=== PATIENT | male | born 1980 | race Caucasian/White ===

== ENCOUNTER 2017-01-22 00:03 | Emergency (ER) | payer SELFPAY ==
--- NOTE | 2017-01-22 00:28 | ED CLINICAL REPORT ---
Clinical Report - Physicians/Mid Levels [facility] [address] [place] [address] 01/22/2017 0:06 Patient: MARION FLOR Time Seen: 00:13. Arrived- By private vehicle. Historian- patient. HISTORY OF PRESENT ILLNESS Chief Complaint: SORE THROAT. This started about 4 days ago and is still present (persistent). It was gradual in onset. Pain described as mild. The patient has had a sore throat and mouth sores. No nasal discharge or congestion or toothache. Similar symptoms previously: None. Recent medical care: Not recently seen/assessed. REVIEW OF SYSTEMS No fever, cough, difficulty breathing or enlarged lymph nodes. All systems otherwise negative, except as recorded above. PAST HISTORY Negative. Problems: no known problems. Surgeries: No history of previous surgery. Additional Surgeries: no known surgeries. Medications: None. Allergies: No Known Drug Allergy. SOCIAL HISTORY Never smoker. No alcohol use or drug use. ADDITIONAL NOTES The nursing notes have been reviewed. PHYSICAL EXAM Vital Signs: 01/22/2017 00:10 BP: 128/70. HR: 80. RR: 16. O2 saturation: 99%. Temp: 98.8 F. Pain level now: 8/10. Have been reviewed as normal. Appearance: Alert. No acute distress. ENT: Nose normal. Tongue: moderate erythema (patchy white rash). No trismus present. No dental decay. Neck: No adenopathy. CVS: Normal heart rate and rhythm. Heart sounds normal. Respiratory: No respiratory distress. Breath sounds normal. Neuro: Oriented X 3. PROGRESS AND PROCEDURES Disposition: Discharged home in good condition. Condition: good. CLINICAL IMPRESSION Thrush INSTRUCTIONS Prescription Medications: Nystatin Suspension 100,000 units/mL: take one (1) teaspoon orally (swish thoroughly around mouth and swallow) every 6 hours for 7 days. No refills. (Disp 150 mL) Follow-up: Follow up with your doctor in about three days. Call for an appointment. Screening today revealed the patient's blood pressure to be in the pre-hypertensive range. The patient should follow up with a primary care provider for blood pressure management. (Electronically signed by Kit Trevino Dr. 01/22/2017 1:50)
--- NOTE | 2017-01-22 00:28 | ED ORDER SUMMARY ---
..... Patient: MARION FLOR OrderSheet [facility] VisitID: [id number] [address] [place] [address] 36y, M Registration Date/Time: 01/22/2017 ORDER SHEET Weight: 114.3 kg (stated) Allergies: No Known Drug Allergy GENERAL ORDERS: Culture, Strep Screen Urgent (00:17 01/22/2017 Arielle R.N. per protocol) (Ack 0:20 Luisekjoseluis) (0:33 JQuivey R.N.) MEDICATION ORDERS: IV FLUIDS: ORDER SHEET NOTES: [Electronically signed by Cory Ford R.N. (01:08 01/22/2017)] [Electronically signed by Kit Trevino Dr. (01:50 01/22/2017)] [Electronically locked/signed by Cory Ford R.N. (01:08 01/22/2017)]
--- NOTE | 2017-01-22 00:28 | ED NURSING NOTES ---
Clinical Report - Nurses [facility] [address] [place] [address] 01/22/2017 0:06 Patient: MARION FLOR TRIAGE Triage time 00:11. Acuity: LEVEL 4. Chief Complaint: SORE THROAT. 00:13. Alert. SEPSIS SCREEN: Sepsis Screen. Negative (no infection suspected/documented). --00:13 Cory Ford R.N. 00:10 01/22/17. BP: 128/70. HR: 80. RR: 16. O2 saturation: 99%. Temp: 98.8 F (oral). Pain level now: 05/19. --00:13 Cory Ford R.N. Weight: 114.3 kg stated. Height/Length: 68 inches Per Patient. BMI: 38.3. --00:13 Cory Ford R.N. Medications None. --00:12 Cory Ford R.N. Medication/allergy information source: the patient. --00:13 Cory Ford R.N. Allergies No Known Drug Allergy. --00:12 Cory Ford R.N. History Arrived by private vehicle. Historian: patient. Accompanied by friend. Primary physician (Mykel). Onset. (7 days ago). 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 PAST MEDICAL HX: Immunizations: up-to-date. SOCIAL HX: Never smoker. Occasional alcohol use. No drug use. No infectious disease exposure. ABUSE ASSESSMENT: No report of abuse. FALL RISK ASSESSMENT: Fall risk assessment completed. No fall risk identified. NUTRITIONAL RISK ASSESSMENT: The nutritional risk assessment revealed no deficiencies. FUNCTIONAL ASSESSMENT: Functional assessment: no impairments noted. LEARNING NEEDS ASSESSMENT: The learning needs assessment revealed no barriers. SKIN INTEGRITY ASSESSMENT: Skin integrity risk assessment completed. No skin integrity risk identified. --00:13 Cory Ford R.N. PROBLEMS: no known problems. ADDITIONAL SURGERIES: no known surgeries. Interventions ID band on patient. To treatment room. --00:13 Cory Ford R.N. PHYSICAL ASSESSMENT 00:14. Ambulatory to room. GENERAL / NEURO / PSYCH: Alert. Oriented X 4. HEENT: Voice within normal limits. Mucous membranes are pink. RESPIRATORY: Respirations not labored. SKIN: Skin is warm and dry. Normal skin turgor. --00:14 Cory Ford R.N. NURSING PROGRESS NOTES 00:14. Head of bed elevated. Two patient identifiers checked. Call light placed in reach. Bed placed in lowest position. Brakes of bed on. Patient ready for evaluation- chart flagged. --00:14 Cory Ford R.N. 00:17. Patient ID band checked for patient name and birthdate: patient confirmed. Throat swab obtained for rapid strep; labeled in the presence of the patient and sent to lab. --00:18 Cory Ford R.N. 00:32. The patient is calm and resting quietly. GENERAL / NEURO / PSYCH: Alert. Oriented X 4. RESPIRATORY: No respiratory distress. SKIN: Skin is warm and dry. --00:35 Cory Ford R.N. DISPOSITION / DISCHARGE Departure time: 00:34. Condition at departure: stable. No learning barriers present. Discharge instructions provided and reviewed with the patient. Reviewed medication(s) side effects, precautions, dosing and course information. Prescription(s) given to the patient. Patient verbalized understanding. Written instructions provided in Grenadian. The patient was discharged home and accompanied by translator interpreter. He left the Emergency Department ambulatory and via private vehicle. Telephone Station Installer driving. FALL RISK ASSESSMENT: Fall risk assessment completed. No fall risk identified. --00:35 Cory Ford R.N. Locked/Released at 01/22/2017 1:08 by Cory Ford R.N.
--- NOTE | 2017-01-22 00:28 | ED ORDER SUMMARY ---
..... Patient: MARION FLOR OrderSheet [facility] VisitID: [id number] [address] [place] [address] 36y, M Registration Date/Time: 01/22/2017 ORDER SHEET Weight: 114.3 kg (stated) Allergies: No Known Drug Allergy GENERAL ORDERS: Culture, Strep Screen Urgent (00:17 01/22/2017 Arielle R.N. per protocol) (Ack 0:20 Luisekjoseluis) (0:33 JQuivey R.N.) MEDICATION ORDERS: IV FLUIDS: ORDER SHEET NOTES: [Electronically signed by Cory Ford R.N. (01:08 01/22/2017)] [Electronically signed by Kit Trevino Dr. (01:50 01/22/2017)] [Electronically locked/signed by Cory Ford R.N. (01:08 01/22/2017)]
--- NOTE | 2017-01-22 00:28 | ED CLINICAL REPORT ---
Clinical Report - Physicians/Mid Levels [facility] [address] [place] [place] [address] 01/22/2017 0:06 Patient: MARION FLOR Time Seen: 00:13. Arrived- By private vehicle. Historian- patient. HISTORY OF PRESENT ILLNESS Chief Complaint: SORE THROAT. This started about 4 days ago and is still present (persistent). It was gradual in onset. Pain described as mild. The patient has had a sore throat and mouth sores. No nasal discharge or congestion or toothache. Similar symptoms previously: None. Recent medical care: Not recently seen/assessed. REVIEW OF SYSTEMS No fever, cough, difficulty breathing or enlarged lymph nodes. All systems otherwise negative, except as recorded above. PAST HISTORY Negative. Problems: no known problems. Surgeries: No history of previous surgery. Additional Surgeries: no known surgeries. Medications: None. Allergies: No Known Drug Allergy. SOCIAL HISTORY Never smoker. No alcohol use or drug use. ADDITIONAL NOTES The nursing notes have been reviewed. PHYSICAL EXAM Vital Signs: 01/22/2017 00:10 BP: 128/70. HR: 80. RR: 16. O2 saturation: 99%. Temp: 98.8 F. Pain level now: 8/10. Have been reviewed as normal. Appearance: Alert. No acute distress. ENT: Nose normal. Tongue: moderate erythema (patchy white rash). No trismus present. No dental decay. Neck: No adenopathy. CVS: Normal heart rate and rhythm. Heart sounds normal. Respiratory: No respiratory distress. Breath sounds normal. Neuro: Oriented X 3. PROGRESS AND PROCEDURES Disposition: Discharged home in good condition. Condition: good. CLINICAL IMPRESSION Thrush INSTRUCTIONS Prescription Medications: Nystatin Suspension 100,000 units/mL: take one (1) teaspoon orally (swish thoroughly around mouth and swallow) every 6 hours for 7 days. No refills. (Disp 150 mL) Follow-up: Follow up with your doctor in about three days. Call for an appointment. Screening today revealed the patient's blood pressure to be in the pre-hypertensive range. The patient should follow up with a primary care provider for blood pressure management. (Electronically signed by Kit Trevino Dr. 01/22/2017 1:50)
--- NOTE | 2017-01-22 00:28 | ED NURSING NOTES ---
Clinical Report - Nurses [facility] [address] [place] [address] 01/22/2017 0:06 Patient: MARION FLOR TRIAGE Triage time 00:11. Acuity: LEVEL 4. Chief Complaint: SORE THROAT. 00:13. Alert. SEPSIS SCREEN: Sepsis Screen. Negative (no infection suspected/documented). --00:13 Cory Ford R.N. 00:10 01/22/17. BP: 128/70. HR: 80. RR: 16. O2 saturation: 99%. Temp: 98.8 F (oral). Pain level now: 05/19. --00:13 Cory Ford R.N. Weight: 114.3 kg stated. Height/Length: 68 inches Per Patient. BMI: 38.3. --00:13 Cory Ford R.N. Medications None. --00:12 Cory Ford R.N. Medication/allergy information source: the patient. --00:13 Cory Ford R.N. Allergies No Known Drug Allergy. --00:12 Cory Ford R.N. History Arrived by private vehicle. Historian: patient. Accompanied by friend. Primary physician (Mykel). Onset. (7 days ago). 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 PAST MEDICAL HX: Immunizations: up-to-date. SOCIAL HX: Never smoker. Occasional alcohol use. No drug use. No infectious disease exposure. ABUSE ASSESSMENT: No report of abuse. FALL RISK ASSESSMENT: Fall risk assessment completed. No fall risk identified. NUTRITIONAL RISK ASSESSMENT: The nutritional risk assessment revealed no deficiencies. FUNCTIONAL ASSESSMENT: Functional assessment: no impairments noted. LEARNING NEEDS ASSESSMENT: The learning needs assessment revealed no barriers. SKIN INTEGRITY ASSESSMENT: Skin integrity risk assessment completed. No skin integrity risk identified. --00:13 Cory Ford R.N. PROBLEMS: no known problems. ADDITIONAL SURGERIES: no known surgeries. Interventions ID band on patient. To treatment room. --00:13 Cory Ford R.N. PHYSICAL ASSESSMENT 00:14. Ambulatory to room. GENERAL / NEURO / PSYCH: Alert. Oriented X 4. HEENT: Voice within normal limits. Mucous membranes are pink. RESPIRATORY: Respirations not labored. SKIN: Skin is warm and dry. Normal skin turgor. --00:14 Cory Ford R.N. NURSING PROGRESS NOTES 00:14. Head of bed elevated. Two patient identifiers checked. Call light placed in reach. Bed placed in lowest position. Brakes of bed on. Patient ready for evaluation- chart flagged. --00:14 Cory Ford R.N. 00:17. Patient ID band checked for patient name and birthdate: patient confirmed. Throat swab obtained for rapid strep; labeled in the presence of the patient and sent to lab. --00:18 Cory Ford R.N. 00:32. The patient is calm and resting quietly. GENERAL / NEURO / PSYCH: Alert. Oriented X 4. RESPIRATORY: No respiratory distress. SKIN: Skin is warm and dry. --00:35 Cory Ford R.N. DISPOSITION / DISCHARGE Departure time: 00:34. Condition at departure: stable. No learning barriers present. Discharge instructions provided and reviewed with the patient. Reviewed medication(s) side effects, precautions, dosing and course information. Prescription(s) given to the patient. Patient verbalized understanding. Written instructions provided in Jamaican. The patient was discharged home and accompanied by insurance salesman. He left the Emergency Department ambulatory and via private vehicle. Numerical Control Machine Machinist driving. FALL RISK ASSESSMENT: Fall risk assessment completed. No fall risk identified. --00:35 Cory Ford R.N. Locked/Released at 01/22/2017 1:08 by Cory Ford R.N.
--- NOTE | 2017-01-22 01:50 | ED MED RECONCILIATION SUMMARY ---
Patient: MARION FLOR Medication Reconciliation Report [facility] VisitID: [id number] [address] [place] [address] 36y, M Registration Date/Time: 01/22/2017 Weight: 114.3 kg Height/Length: 68 in. BMI: 38.3 ALLERGIES: No Known Drug Allergy The patient's Home Medications are listed below: NONE. The source(s) of the original Home Medication information: patient The following Medications were given to the patient in the Emergency Department: None. The following Medications were prescribed to the patient: Nystatin Suspension 100,000 units/mL: take one (1) teaspoon orally (swish thoroughly around mouth and swallow) every 6 hours for 7 days. No refills.(Disp 150 mL) -- Kit Trevino Dr.
--- NOTE | 2017-01-22 01:50 | ED MED RECONCILIATION SUMMARY ---
Patient: MARION FLOR Medication Reconciliation Report [facility] VisitID: [id number] [address] [place] [address] 36y, M Registration Date/Time: 01/22/2017 Weight: 114.3 kg Height/Length: 68 in. BMI: 38.3 ALLERGIES: No Known Drug Allergy The patient's Home Medications are listed below: NONE. The source(s) of the original Home Medication information: patient The following Medications were given to the patient in the Emergency Department: None. The following Medications were prescribed to the patient: Nystatin Suspension 100,000 units/mL: take one (1) teaspoon orally (swish thoroughly around mouth and swallow) every 6 hours for 7 days. No refills.(Disp 150 mL) -- Kit Trevino Dr.
--- NOTE | 2017-01-22 01:50 | ED DISCHARGE INSTRUCTIONS ---
Patient: MARION FLOR General Instructions [facility] VisitID: [id number] [place] [address] 36y, M Registration Date/Time: 01/22/2017 Thrush INSTRUCTIONS Prescription Medications: Nystatin Suspension 100,000 units/mL: take one (1) teaspoon orally (swish thoroughly around mouth and swallow) every 6 hours for 7 days. No refills. (Disp 150 mL) Follow-up: Follow up with your doctor in about three days. Call for an appointment. Screening today revealed the patient's blood pressure to be in the pre-hypertensive range. The patient should follow up with a primary care provider for blood pressure management. ADDITIONAL INFORMATION Christine Infection: Thrush [Infant/Toddler] Christine is a yeast that occurs naturally on the skin and in the mouth. If Christine grows out of control, it can cause an infection. Christine is a common cause of diaper rash. It can also cause a mouth infection called thrush. Infants with a weakened immune system or who have been on antibiotic therapy are more likely to get thrush. Christine infection is often painful and itchy. Thrush causes cracked skin in the corners of the mouth and whitish patches on the tongue and inside of the cheeks. The patches may look like milk. It may be painful for your child to swallow. Oral Christine is treated with liquid medication given through a dropper in the mouth. If you are breast-feeding an infant who has oral thrush, you may have a mild yeast infection in the nipples. Treatment of you and your baby at the same time will prevent passing the infection back and forth. Home Care: Medications: Your doctor may prescribe liquid antifungal medication to put in the infants mouth. Follow the doctors instructions when using this medication. General Care: Rinse your infants mouth with water after each feeding. Then give the liquid medication to your child as directed. Apply the prescribed amount of medication with a dropper into each side of the mouth (between the gum and the cheek) as directed for at least one week and until all white spots are gone. Boil reusable nipples and bottles for at least 5 to 10 minutes after a thorough washing. Boil pacifiers for 5 to 10 minutes at least once a day. Thoroughly wash drinking cups using warm water and soap after each use. Also wash the medicine dropper after each use. If you are , ask your doctor how to treat your nipples to prevent infection. Wash your hands well with warm water and soap before and after taking care of your child to avoid spreading infection. Wash your zen hands with warm water and soap before and after eating. Monitor your child for continued signs of infection. Follow Up with your doctor in two weeks. Follow up with the doctor sooner if your is not showing some improvement after one week of treatment. If your infant has repeated thrush infections, especially after 9 months of age, talk to your healthcare provider. Another health problem may be present. Get Prompt Medical Attention if any of the following occur: has fever greater than 100.4F (38C) rectal stops eating or drinking Infant has continuing or increasing pain (infants may express pain with fussiness that cant be relieved) Infection gets worse Nystatin Oral suspension What is this medicine? NYSTATIN (kristi STAT in) is an antifungal medicine. It is used to treat certain kinds of fungal or yeast infections. How should I use this medicine? Follow the directions on the prescription label. Shake well before using. Use a specially marked dropper to measure every dose. Ask your pharmacist if you do not have one. Put one half of the dose in each side of your mouth. Swish the medicine around in your mouth and gargle. Hold your dose in your mouth for as long as you can. Swallow or spit out as directed by your doctor. Take your medicine at regular intervals. Do not take your medicine more often than directed. Do not skip doses or stop your medicine early even if you feel better. Do not stop taking except on your doctor's advice. Talk to your maintenance planner regarding the use of this medicine in children. Special care may be needed. What side effects may I notice from receiving this medicine? Side effects that you should report to your doctor or health vocational childcare teacher as soon as possible: allergic reactions like skin rash, itching or hives, swelling of the face, lips, or tongue fast heart beat redness, blistering, peeling or loosening of the skin, including inside the mouth trouble breathing Side effects that usually do not require medical attention (report to your doctor or health vocational childcare teacher if they continue or are bothersome): diarrhea muscle aches or pains nausea, vomiting stomach upset What may interact with this medicine? Interactions are not expected. What if I miss a dose? If you miss a dose, take it as soon as you can. If it is almost time for your next dose, take only that dose. Do not take double or extra doses. Where should I keep my medicine? Keep out of the reach of children. Store at room temperature between 15 and 25 degrees C (59 and 77 degrees F). Protect from light. Throw away any unused medicine after the expiration date. What should I tell my health care provider before I take this medicine? They need to know if you have any of these conditions: diabetes kidney disease an unusual or allergic reaction to nystatin, ethylenediamine, parabens, thimerosal, other foods, dyes or preservatives or trying to get breast-feeding What should I watch for while using this medicine? Tell your doctor or health vocational childcare teacher if your symptoms do not improve or get worse. If you wear dentures talk to your doctor about how to clean them. You have been given the following additional information: Christine Infection: Thrush [] Nystatin Oral suspension (Electronically signed by Kit Trevino Dr. 01/22/2017 1:50)
--- NOTE | 2017-01-22 01:50 | ED MAR SUMMARY ---
..... Medication Administration Record [facility] [address] [place], [place] [id number] Patient: MISTY LIYAHMARION Visit ID: [id number] 36y, M Weight: 114.3 kg Height/Length: 68 in BMI: 38.3 ALLERGIES: No Known Drug Allergy
--- NOTE | 2017-01-22 01:50 | ED DISCHARGE INSTRUCTIONS ---
Patient: MARION FLOR General Instructions [facility] VisitID: [id number] [place] [address] 36y, M Registration Date/Time: 01/22/2017 Thrush INSTRUCTIONS Prescription Medications: Nystatin Suspension 100,000 units/mL: take one (1) teaspoon orally (swish thoroughly around mouth and swallow) every 6 hours for 7 days. No refills. (Disp 150 mL) Follow-up: Follow up with your doctor in about three days. Call for an appointment. Screening today revealed the patient's blood pressure to be in the pre-hypertensive range. The patient should follow up with a primary care provider for blood pressure management. ADDITIONAL INFORMATION Christine Infection: Thrush [Infant/Toddler] Christine is a yeast that occurs naturally on the skin and in the mouth. If Christine grows out of control, it can cause an infection. Christine is a common cause of diaper rash. It can also cause a mouth infection called thrush. Infants with a weakened immune system or who have been on antibiotic therapy are more likely to get thrush. Christine infection is often painful and itchy. Thrush causes cracked skin in the corners of the mouth and whitish patches on the tongue and inside of the cheeks. The patches may look like milk. It may be painful for your child to swallow. Oral Christine is treated with liquid medication given through a dropper in the mouth. If you are breast-feeding an infant who has oral thrush, you may have a mild yeast infection in the nipples. Treatment of you and your baby at the same time will prevent passing the infection back and forth. Home Care: Medications: Your doctor may prescribe liquid antifungal medication to put in the infants mouth. Follow the doctors instructions when using this medication. General Care: Rinse your infants mouth with water after each feeding. Then give the liquid medication to your child as directed. Apply the prescribed amount of medication with a dropper into each side of the mouth (between the gum and the cheek) as directed for at least one week and until all white spots are gone. Boil reusable nipples and bottles for at least 5 to 10 minutes after a thorough washing. Boil pacifiers for 5 to 10 minutes at least once a day. Thoroughly wash drinking cups using warm water and soap after each use. Also wash the medicine dropper after each use. If you are , ask your doctor how to treat your nipples to prevent infection. Wash your hands well with warm water and soap before and after taking care of your child to avoid spreading infection. Wash your zen hands with warm water and soap before and after eating. Monitor your child for continued signs of infection. Follow Up with your doctor in two weeks. Follow up with the doctor sooner if your is not showing some improvement after one week of treatment. If your infant has repeated thrush infections, especially after 9 months of age, talk to your healthcare provider. Another health problem may be present. Get Prompt Medical Attention if any of the following occur: has fever greater than 100.4F (38C) rectal stops eating or drinking Infant has continuing or increasing pain (infants may express pain with fussiness that cant be relieved) Infection gets worse Nystatin Oral suspension What is this medicine? NYSTATIN (kristi STAT in) is an antifungal medicine. It is used to treat certain kinds of fungal or yeast infections. How should I use this medicine? Follow the directions on the prescription label. Shake well before using. Use a specially marked dropper to measure every dose. Ask your pharmacist if you do not have one. Put one half of the dose in each side of your mouth. Swish the medicine around in your mouth and gargle. Hold your dose in your mouth for as long as you can. Swallow or spit out as directed by your doctor. Take your medicine at regular intervals. Do not take your medicine more often than directed. Do not skip doses or stop your medicine early even if you feel better. Do not stop taking except on your doctor's advice. Talk to your mold maker plaster regarding the use of this medicine in children. Special care may be needed. What side effects may I notice from receiving this medicine? Side effects that you should report to your doctor or health residential child care counselor as soon as possible: allergic reactions like skin rash, itching or hives, swelling of the face, lips, or tongue fast heart beat redness, blistering, peeling or loosening of the skin, including inside the mouth trouble breathing Side effects that usually do not require medical attention (report to your doctor or health residential child care counselor if they continue or are bothersome): diarrhea muscle aches or pains nausea, vomiting stomach upset What may interact with this medicine? Interactions are not expected. What if I miss a dose? If you miss a dose, take it as soon as you can. If it is almost time for your next dose, take only that dose. Do not take double or extra doses. Where should I keep my medicine? Keep out of the reach of children. Store at room temperature between 15 and 25 degrees C (59 and 77 degrees F). Protect from light. Throw away any unused medicine after the expiration date. What should I tell my health care provider before I take this medicine? They need to know if you have any of these conditions: diabetes kidney disease an unusual or allergic reaction to nystatin, ethylenediamine, parabens, thimerosal, other foods, dyes or preservatives or trying to get breast-feeding What should I watch for while using this medicine? Tell your doctor or health residential child care counselor if your symptoms do not improve or get worse. If you wear dentures talk to your doctor about how to clean them. You have been given the following additional information: Christine Infection: Thrush [] Nystatin Oral suspension (Electronically signed by Kit Trevino Dr. 01/22/2017 1:50)
--- NOTE | 2017-01-22 01:50 | ED MAR SUMMARY ---
..... Medication Administration Record [facility] [address], [place] [id number] Patient: MISTY LIYAHMARION Visit ID: [id number] 36y, M Weight: 114.3 kg Height/Length: 68 in BMI: 38.3 ALLERGIES: No Known Drug Allergy
== END 2017-01-22 00:34 | disposition home or self-care (01) ==
LOC: ED SRH 00:03
DX: B37.9 Candidiasis, unspecified (principal)
CPT/HCPCS: 90154; 90159